=== PATIENT | male | born 1940 | race Caucasian/White ===

== ENCOUNTER 2018-10-13 15:11 | Emergency (ER) | payer BC, MEDICARE ==
[~2018-10-13] VITALS: Ht 165.1 cm; Wt 73.0 kg
[2018-10-13 15:40] VITALS: BP 130/64
== END 2018-10-13 19:05 | disposition left against medical advice (07) ==
LOC: ER 15:11
DX: Z53.21 Procedure and treatment not carried out due to patient leaving prior to being seen by health care provider (principal)